=== PATIENT | male | born 1985 | race Caucasian/White ===

== ENCOUNTER 2019-09-10 05:49 | Emergency (ER) | payer OTHER ==
[~2019-09-10] VITALS: Ht 180.3 cm; Wt 84.8 kg
[2019-09-10 05:52] VITALS: BP 109/79
[2019-09-10] MEDS ORDERED: HYDROCODON-ACE1 EA12 PO (05:55)
[2019-09-10 06:18] LABS: ABSOLUTE BASOPHILS 0.1 thou/uL (0.0-0.2); ABSOLUTE EOSINOPHILS 0.2 thou/uL (0.0-0.7); ABSOLUTE LYMPHOCYTES 1.3 thou/uL (0.8-5.3); ABSOLUTE MONOCYTES 0.8 thou/uL (0.0-1.2); ABSOLUTE NEUTROPHILS 10.6 thou/uL (1.6-8.1); BASOPHILS 0.7 %; EOSINOPHILS 1.5 %; HEMATOCRIT 38.7 % (42.0-52.0); HEMOGLOBIN 13.3 gm/dL (14.0-18.0); LYMPHOCYTES 9.9 %; MCH 31.1 pg (26.0-34.0); MCHC 34.4 g/dL (28.0-37.0); MCV 90.3 fL (80.0-100.0); MONOCYTES 5.9 %; MPV 6.6 fl. (7.2-11.1); NUCLEATED RBCS 0 /100WBC; PLATELET COUNT* 310 thou/uL (150-400); RBC 4.29 mil/uL (4.50-6.00); RDW-CV 13.3 % (10.5-14.5); WBC 12.8 thou/uL (4.0-11.0)
[2019-09-10 06:33] LABS: CALCIUM 8.5 mg/dL (8.5-10.1); CREATININE 1.3 mg/dL (0.6-1.3); POTASSIUM 4.3 mmol/L (3.5-5.1)
[2019-09-10 06:37] LABS: ALBUMIN 3.8 g/dL (3.4-5.0); MAGNESIUM 1.7 mg/dL (1.8-2.4); TOTAL BILIRUBIN 0.7 mg/dL (<0.1-1.0); TOTAL PROTEIN 6.9 g/dL (6.4-8.2)
[2019-09-10] MEDS ORDERED: CEFDINIR300 MG PO (08:44)
[2019-09-10 08:55] VITALS: BP 114/73
[2019-09-10 09:42] LABS: BF RBC 5025 /mm3; TOTAL CELL COUNT 42169 /mm3
[2019-09-10 09:44] LABS: TOTAL VOLUME 20 ml
[2019-09-10 09:45] LABS: CLARITY TURBID
[2019-09-10 09:47] LABS: BF LYMPHOCYTES 1 %; BF POLYS 99 %; BF TISSUE 9 /100 WBC
[2019-09-10 09:48] LABS: SOURCE SYNOVIAL
[2019-09-12 08:13] LABS: BODY FLUID PROTEIN 3.2 g/dL (())
[2019-09-12 08:51] LABS: SOURCE KNEE JOINT
== END 2019-09-10 08:55 | disposition left against medical advice (07) ==
LOC: M.ERS 05:49 → M.TBA-ER 08:32 → M.ERS 08:32
PROVIDERS: Emergency Medicine Emergency Medical Services; Personal Emergency Response Attendant
DX: M00.9 Pyogenic arthritis, unspecified (principal); M54.9 Dorsalgia, unspecified; G89.29 Other chronic pain; F17.210 Nicotine dependence, cigarettes, uncomplicated; Z90.49 Acquired absence of other specified parts of digestive tract